=== PATIENT | male | born 1960 | race Caucasian/White ===

== ENCOUNTER 2018-08-27 14:19 | Outpatient (CLI) | payer MEDICAID ==
[~2018-08-27 14:19] MED LIST: ACET-2144 PO; ATOR10TA87 PO; BENZ1TAB7 PO; BISA-77 PO; CHOL100010 PO; CLOZ200T12 PO; CYAN100087 PO; DEXL30CA3 PO; DULR RC; FLUR30CA13 PO; HYDR1TAB PO; IBUP-1984 PO; IMO2C PO; LORA0.5T PO; LORA1TAB PO; LURA40TA PO; LURA80TA PO; MAGN-64 PO; MAGN296S68 CORPAK; OLAN10TA19 PO; OMEG1CAP54 PO; PYRI50CA PO; RISP3TAB11 PO; SYN0.075T PO; VALP250C44 PO; [UNRECOGNIZED DRUG - CODE] PO; [UNRECOGNIZED DRUG - CODE] PO
== END 2018-08-27 23:59 | disposition home or self-care (01) ==
LOC: RAD 14:19
PROVIDERS: ATTEND Internal Medicine
DX: R13.12 Dysphagia, oropharyngeal phase (principal)
CPT/HCPCS: 74230

== ENCOUNTER → 2019-12-16 | Outpatient (CLI) | payer MEDICAID | END | disposition home or self-care (01) | LOC: RAD 12:31 | PROVIDERS: ATTEND Internal Medicine | DX: R13.12 Dysphagia, oropharyngeal phase (principal) | CPT/HCPCS: 74230 ==

== ENCOUNTER 2020-02-16 16:56 | Inpatient (IN) | payer MEDICAID ==
[~2020-02-16] VITALS: Ht 177.8 cm; Wt 66.8 kg
[~2020-02-16 16:56] MED LIST changes: -ACET-2144 PO; +ACET-3209 PO
[2020-02-16] MEDS ORDERED: normal saline 1000ML IV soln IVB ONE (17:45)
[2020-02-16] MEDS ORDERED: normal saline 1000ML IV soln IV ONE (17:45)
[2020-02-16] MEDS ORDERED: CefTRIAXone/D5W-Rocephin 1gm 50 ML IV ONE (17:45)
[2020-02-16] MEDS ORDERED: dexamethasone 4mg/ml inj IV STA (17:51)
--- NOTE | 2020-02-16 18:05 | NUR ---
TO CT VIA [facility]
[2020-02-16 18:24] LABS: BASOPHILS % (AUTO) 0.1 % (0-1); EOSINOPHILS % (AUTO) 0.1 % (0-6); HEMATOCRIT 32.9 % (42.0-52.0); HEMOGLOBIN 10.8 g/dl (14.0-17.9); LYMPHOCYTES # (AUTO) 0.5 X10'3 (1.1-4.8); LYMPHOCYTES % (AUTO) 4.6 % (21-51); MEAN CORPUSCULAR HEMOGLOBIN 29.2 PG (27.0-31.0); MEAN CORPUSCULAR VOLUME 88.5 FL (78-98); MEAN PLATELET VOLUME 10.8 FL (7.4-10.4); MONOCYTES # (AUTO) 1.2 X10'3 (0-0.9); MONOCYTES % (AUTO) 11.3 % (2-12); NEUTROPHILS # (AUTO) 8.7 X10'3 (1.8-7.7); NEUTROPHILS % (AUTO) 83.9 % (42-75); PLATELET COUNT 171 X10'3 (140-440); RED BLOOD COUNT 3.72 X10'6 (4.70-6.10); RED CELL DISTRIBUTION WIDTH 15.8 % (11.5-14.5); WHITE BLOOD COUNT 10.4 X10'3 (4.5-11.0)
[2020-02-16 18:29] LABS: ALANINE AMINOTRANSFERASE 21 U/L (12-78); ALBUMIN 2.4 G/DL (3.4-5.0); ALBUMIN/GLOBULIN RATIO 0.5 (1.1-1.5); ALKALINE PHOSPHATASE 120 IU/L (46-116); ANION GAP 7 (8-16); ASPARTATE AMINO TRANSFERASE 80 U/L (10-37); BILIRUBIN,TOTAL 0.3 MG/DL (0.1-1.0); BLOOD UREA NITROGEN 70 MG/DL (7-18); BUN/CREATININE RATIO 35.2 (5.4-32.0); CHLORIDE 110 MMOL/L (99-107); CREATININE 1.99 MG/DL (0.60-1.10); GLUCOSE 113 MG/DL (70-104); POTASSIUM 4.8 MMOL/L (3.5-5.1); SODIUM 148 MMOL/L (135-145); TOTAL CARBON DIOXIDE 30.7 MMOL/L (24-32); TOTAL PROTEIN 7.6 G/DL (6.4-8.2); eGFR 34 ML/MIN
[2020-02-16 18:42] LABS: LACTATE DEHYDROGENASE 211 U/L (85-227); TROPONIN I < 0.04 NG/ML (0.0-0.05)
[2020-02-16 18:57] LABS: C-REACTIVE PROTEIN 25.36 MG/DL (0.0-0.5); FERRITIN 356 NG/ML (26-388)
[2020-02-16] MEDS ORDERED: aspirin 81mg tab.chew PO ONE (19:50)
[2020-02-16] MEDS ORDERED: ondansetron/PF 4mg/2ml inj IV PRN (20:30)
[2020-02-16] MEDS ORDERED: LORazepam 2 mg/ml vial IV PRN (20:50)
--- NOTE | 2020-02-16 22:35 | NUR ---
Patient in room ORTHO 4008. I have received report from BERTRAND Gipson in ED and had the opportunity to ask questions and assume patient care.
[2020-02-16 23:00] VITALS: BP 136/81
[2020-02-16] MEDS: normal saline 1000ml 1,000 ML IV SCH (23:00)
--- NOTE | 2020-02-16 23:00 | NUR ---
While getting patient situated in bed and doing assessment patient tried to hit 2 times and cussed me out. Redirected patient and asked him not to behave that way.
--- NOTE | 2020-02-17 03:02 | NUR ---
Pt was incontinent, while changing him he grabbed my wrist tightly. He was asked to stop several times before he letting go of my wrist.
[2020-02-17 06:00] VITALS: BP 120/66
[2020-02-17] MEDS: normal saline 1000ml 1,000 ML IV SCH ×2 (06:30→14:30)
--- NOTE | 2020-02-17 06:30 | NUR ---
Problems reprioritized. Patient report given, questions answered & plan of care reviewed with BERTRAND Max.
[2020-02-17 07:53] LABS: BASOPHILS % (AUTO) 0.1 % (0-1); EOSINOPHILS % (AUTO) 0 % (0-6); HEMATOCRIT 28.5 % (42.0-52.0); HEMOGLOBIN 9.5 g/dl (14.0-17.9); LYMPHOCYTES # (AUTO) 0.2 X10'3 (1.1-4.8); LYMPHOCYTES % (AUTO) 4.4 % (21-51); MEAN CORPUSCULAR HGB CONC 33.4 g/dL (33.0-36.5); MEAN CORPUSCULAR VOLUME 89.8 FL (78-98); MEAN PLATELET VOLUME 10.1 FL (7.4-10.4); MONOCYTES # (AUTO) 0.4 X10'3 (0-0.9); MONOCYTES % (AUTO) 7.8 % (2-12); NEUTROPHILS # (AUTO) 4.9 X10'3 (1.8-7.7); NEUTROPHILS % (AUTO) 87.7 % (42-75); PLATELET COUNT 158 X10'3 (140-440); RED BLOOD COUNT 3.17 X10'6 (4.70-6.10); RED CELL DISTRIBUTION WIDTH 15.3 % (11.5-14.5); WHITE BLOOD COUNT 5.5 X10'3 (4.5-11.0)
[2020-02-17 07:59] LABS: ALANINE AMINOTRANSFERASE 37 U/L (12-78); ALBUMIN/GLOBULIN RATIO 0.4 (1.1-1.5); ALKALINE PHOSPHATASE 101 IU/L (46-116); ANION GAP 7 (8-16); ASPARTATE AMINO TRANSFERASE 64 U/L (10-37); BILIRUBIN,TOTAL 0.3 MG/DL (0.1-1.0); BLOOD UREA NITROGEN 54 MG/DL (7-18); BUN/CREATININE RATIO 55.7 (5.4-32.0); CALCIUM 9.1 MG/DL (8.5-10.1); CHLORIDE 116 MMOL/L (99-107); CREATININE 0.97 MG/DL (0.60-1.10); GLUCOSE 126 MG/DL (70-104); POTASSIUM 4.3 MMOL/L (3.5-5.1); SODIUM 151 MMOL/L (135-145); TOTAL CARBON DIOXIDE 27.8 MMOL/L (24-32); TOTAL PROTEIN 6.9 G/DL (6.4-8.2); eGFR 79 ML/MIN
[2020-02-17] MEDS ORDERED: enoxaparin 80mg/0.8ml syringe SUBCUT SCH (08:00)
[2020-02-17] MEDS: CefTRIAXone/D5W-Rocephin 1gm 50 ML IV SCH (09:04)
[2020-02-17] MEDS: LORazepam 2 mg/ml vial IV SCH ×2 (09:04→21:21)
[2020-02-17] MEDS: dexamethasone inj 6 MG in normal saline 100ml IV soln 100 ML IV SCH (10:20)
[2020-02-17 13:04] LABS: CLARITY,URINE CLEAR (Clear); COLOR,URINE YELLOW (Yellow); GLUCOSE, URINE NEGATIVE (Neg); KETONES,URINE NEGATIVE (Neg); LEUKOCYTE ESTERASE ,URINE NEGATIVE (Neg); NITRITES, URINE NEGATIVE (Neg); OCCULT BLOOD,URINE SMALL (Neg); PROTEIN,URINE NEGATIVE (Neg)
[2020-02-17 13:14] LABS: UA COLLECTION TYPE VOIDED
[2020-02-17 13:20] LABS: RBC,URINE 0-2 /HPF (0-2)
[2020-02-17 13:21] LABS: BACTERIA,URINE NONE SEEN /HPF (Neg)
[2020-02-17 13:22] LABS: SQUAMOUS EPITHELIAL CELL,UR NONE SEEN /LPF (FEW); WBC,URINE NONE SEEN /HPF (0-4)
--- NOTE | 2020-02-17 16:38 | NUR ---
PAGER ID: [phone] MESSAGE: [phone]- Sunday Mulligan- did you want to have a chest ct scan, per the cxray report? Winter [id number]
[2020-02-17 18:00] VITALS: BP 133/79
--- NOTE | 2020-02-17 18:00 | NUR ---
RECEIVED REPORT FROM GILLIAN THURSTON AND ASSUMED PATIENT CARE
--- NOTE | 2020-02-17 18:40 | NUR ---
Problems reprioritized. Patient report given, questions answered & plan of care reviewed with Tessy THURSTON.
--- NOTE | 2020-02-17 18:55 | NUR ---
CONFIRMED WITH DR FERRIS HE DOES NOT WANT CONTRAST WITH THE CT
[2020-02-17] MEDS ORDERED: lactobacillus rhamnosus 10,000 MMU CELLS/CAPSULE PO SCH (20:00)
[2020-02-17 22:00] VITALS: BP 158/68
[2020-02-18] MEDS: normal saline 1000ml 1,000 ML IV SCH ×2 (02:30→12:30)
[2020-02-18] MEDS ORDERED: VALB40CA PO (04:37)
[2020-02-18] MEDS ORDERED: OLAN15TA3 PO (04:37)
[2020-02-18] MEDS ORDERED: FENO48TA15 PO (04:37)
[2020-02-18] MEDS ORDERED: TEMA30CA PO (04:37)
[2020-02-18] MEDS ORDERED: FERR-119 PO (04:37)
[2020-02-18] MEDS ORDERED: LIOT5TAB10 PO (04:37)
[2020-02-18] MEDS ORDERED: DIVA125C2 PO ×2 (04:37)
[2020-02-18] MEDS ORDERED: LURA60TA PO (04:37)
[2020-02-18] MEDS ORDERED: OMEP20TA23 PO (04:37)
[2020-02-18] MEDS ORDERED: CARB-87 PO (04:37)
[2020-02-18] MEDS ORDERED: LEVO75TA PO (04:37)
[2020-02-18 06:00] VITALS: BP 140/88
[2020-02-18 07:07] LABS: BASOPHILS % (AUTO) 0 % (0-1); EOSINOPHILS % (AUTO) 0 % (0-6); LYMPHOCYTES # (AUTO) 0.5 X10'3 (1.1-4.8); LYMPHOCYTES % (AUTO) 5.9 % (21-51); MEAN CORPUSCULAR HEMOGLOBIN 29.5 PG (27.0-31.0); MEAN CORPUSCULAR HGB CONC 33.2 g/dL (33.0-36.5); MEAN CORPUSCULAR VOLUME 88.7 FL (78-98); MEAN PLATELET VOLUME 9.3 FL (7.4-10.4); MONOCYTES # (AUTO) 0.9 X10'3 (0-0.9); MONOCYTES % (AUTO) 10.8 % (2-12); NEUTROPHILS # (AUTO) 6.9 X10'3 (1.8-7.7); NEUTROPHILS % (AUTO) 83.3 % (42-75); PLATELET COUNT 244 X10'3 (140-440); RED BLOOD COUNT 3.05 X10'6 (4.70-6.10); RED CELL DISTRIBUTION WIDTH 15.3 % (11.5-14.5); WHITE BLOOD COUNT 8.3 X10'3 (4.5-11.0)
[2020-02-18 07:27] LABS: ALANINE AMINOTRANSFERASE 45 U/L (12-78); ALBUMIN 2.1 G/DL (3.4-5.0); ALBUMIN/GLOBULIN RATIO 0.5 (1.1-1.5); ALKALINE PHOSPHATASE 92 IU/L (46-116); ANION GAP 5 (8-16); ASPARTATE AMINO TRANSFERASE 52 U/L (10-37); BILIRUBIN,TOTAL 0.4 MG/DL (0.1-1.0); BLOOD UREA NITROGEN 40 MG/DL (7-18); BUN/CREATININE RATIO 50.6 (5.4-32.0); CALCIUM 9.1 MG/DL (8.5-10.1); CHLORIDE 119 MMOL/L (99-107); CREATININE 0.79 MG/DL (0.60-1.10); GLUCOSE 95 MG/DL (70-104); POTASSIUM 3.3 MMOL/L (3.5-5.1); SODIUM 154 MMOL/L (135-145); TOTAL CARBON DIOXIDE 30.1 MMOL/L (24-32); TOTAL PROTEIN 6.7 G/DL (6.4-8.2); eGFR > 90 ML/MIN
[2020-02-18] MEDS ORDERED: enoxaparin 40mg/0.4ml syringe SUBCUT SCH (08:00)
[2020-02-18] MEDS: CefTRIAXone/D5W-Rocephin 1gm 50 ML IV SCH (08:31)
[2020-02-18] MEDS: LORazepam 2 mg/ml vial IV SCH (08:31)
[2020-02-18] MEDS: dexamethasone inj 6 MG in normal saline 100ml IV soln 100 ML IV SCH (08:31)
[2020-02-18 10:00] VITALS: BP 158/71
[2020-02-18] MEDS: dextrose 5%-water 1,000 ML IV SCH ×2 (10:09→11:40)
[2020-02-18] MEDS ORDERED: POTASSIUM BICARB 20meq eff tab 20 MEQ TABLET.EFF PO ONE (11:15)
--- NOTE | 2020-02-18 12:27 | NUR ---
SPOKE TO RUSU RECEIVED ORDER FOR ATIVAN .5 MG DUE TO PT AGITATION AND HE STATES NA LEVEL NOT NEEDED.
[2020-02-18] MEDS ORDERED: LORazepam 2 mg/ml vial IV ONE (12:40)
--- NOTE | 2020-02-18 14:28 | NUR ---
IV to left forearm discontinued catheter intact.
== END 2020-02-18 14:51 | DRG 137 ==
LOC: ER 16:57 → ED HOLD 20:26 → ORTHO 4S 22:43
PROVIDERS: ADMIT Internal Medicine; ATTEND Internal Medicine
DX: U07.1 COVID-19 (principal); J12.89 Other viral pneumonia; E03.9 Hypothyroidism, unspecified; E78.00 Pure hypercholesterolemia, unspecified; F20.9 Schizophrenia, unspecified; R09.02 Hypoxemia; R13.10 Dysphagia, unspecified; Z79.899 Other long term (current) drug therapy; N17.9 Acute kidney failure, unspecified
CPT/HCPCS: 36415; 70450; 71045; 71250; 73502; 80053; 81001; 82728; 83605; 83615; 84145; 84484; 85025; 85384; 86140; 87040; 87081; 92508; 92616; 93005; 96365; 96375; 99285; G0378; J0696; J1100; J1650; J2060; J7030; J7070

== ENCOUNTER 2020-05-26 20:18 | Emergency (ER) | payer MEDICAID ==
[~2020-05-26] VITALS: Ht 172.7 cm; Wt 54.5 kg
[~2020-05-26 20:18] MED LIST changes: -ATOR10TA87 PO; +CARB-87 PO; -CLOZ200T12 PO; -DEXL30CA3 PO; +DIVA125C2 PO; +FENO48TA15 PO; +FERR-119 PO; -FLUR30CA13 PO; +LEVO75TA PO; +LIOT5TAB10 PO; -LURA40TA PO; +LURA60TA PO; -LURA80TA PO; -OLAN10TA19 PO; +OLAN15TA3 PO; +OMEP20TA23 PO; -RISP3TAB11 PO; -SYN0.075T PO; +TEMA30CA PO; +VALB40CA2 PO
[2020-05-26 20:23] VITALS: BP 197/118
[2020-05-26] MEDS ORDERED: naloxone 2mg/2ml inj ONE (20:23)
--- NOTE | 2020-05-26 20:23 | NUR ---
VERBAL ORDER FROM MD NAVARRO FOR 2MG NARCAN IVP - MED OVERRIDE USED TO OBTAIN MEDICATION
--- NOTE | 2020-05-26 20:34 | NUR ---
PUBLIC GUARDIAN CALLED FOR UPDATE - DRAGAN GUERRERO (PAGER) [phone], (ANSWERING SERVICE) [phone] - TRY PAGER FIRST
--- NOTE | 2020-05-26 20:43 | NUR ---
Pt intubated in the field with an igel. Pt received with cpr in progress, reintubated with an 8.0 et tube, 24 cm at the teeth with good color change and breath sounds assessed. Obtained ROSC, but then lost pulses again, cpr resumed. Code subsequently called at 2034, pt Addendum: 05/26/20 at 2044 by Priti Hoang RT Amended: Links added.
--- NOTE | 2020-05-26 20:55 | NUR ---
pt was found unresponsive by facility, apneic and asystole. unwitnessed. cpr began at facility 2015 last epi by ems (6 epi's lighter captain by ems) 2017 arrival by ems, cpr in progress, asystole/pea per ems, called TOD on scene, had ROSC, pt coded again, ROSC again, coded in route again to [facility] facility 2020 epi, na bicarb, calcium chloride push 2021 intubed by [facility] 8.0 mac 1 attempt pt in afib rate 98 2023 narcan 2mg pt in sinus rhythm 40bpm 2028 epi 2029 na bicarb, calcium chloride 2032 Time of - [facility] [place]
--- NOTE | 2020-05-26 20:55 | NUR ---
PTS BROTHER CALLED (REI ROBERT) [phone] - HE WANTS HIS BROTHER TO BE CREMATED AND THEN SENT TO [email or web address] IN [place]. HE STATES HE IS FINE USING ANY LOCAL FACILITY THAT DOES CREMATION. PLEASE CALL HIM WHEN WE FIND A FACILITY.
--- NOTE | 2020-05-26 21:20 | NUR ---
PUBLIC GUARDIAN CALLED BACK, PRE ARRANGEMENTS HAVE BEEN MADE AT [facility] IN [place]. SOMEONE NAMED SARAH IS SUPPOSED TO CALL FROM THEIR FACILITY. PUBLIC GUARDIAN WILL CALL US BACK WITH AN ETA FOR TRANSPORT OF THE BODY.
--- NOTE | 2020-05-26 21:28 | NUR ---
spoke with public guardian. [facility] [place] [facility] pt [facility] approx 3 hours. varnish filterer logan made aware.
--- NOTE | 2020-05-26 21:31 | NUR ---
spoke with moses nobles of [facility] where pt was staying and informed her of pt expiration.
--- NOTE | 2020-05-27 01:01 | NUR ---
[facility] arrived to receive pt remains and transport.
== END 2020-05-27 01:16 | disposition expired ==
LOC: ER 20:19
DX: H57.04 Mydriasis (principal); E78.00 Pure hypercholesterolemia, unspecified; K21.9 Gastro-esophageal reflux disease without esophagitis; F20.9 Schizophrenia, unspecified; Z86.69 Personal history of other diseases of the nervous system and sense organs; Z86.19 Personal history of other infectious and parasitic diseases; Z98.890 Other specified postprocedural states; Z79.899 Other long term (current) drug therapy
CPT/HCPCS: 31500; 94799; 99285; J2310; 94760